=== PATIENT | female | born 1955 | race Caucasian/White ===

== ENCOUNTER 2019-09-04 20:57 | Inpatient (IN) ==
[2019-09-04] MEDS ORDERED: Sodium Chloride 0.9% 1,000 ML PRIMARY IV ONE (21:00)
[2019-09-04] MEDS ORDERED: ONDANSETRON 4 MG/2 ML VIAL IVP ONE (21:00)
[2019-09-04] MEDS ORDERED: LORazepam 2 MG/1 ML VIAL IVP ONE ×2 (21:02→23:16)
[2019-09-04 21:14] LABS: BASOPHILS # (AUTO) 0.03 10*3/UL; BASOPHILS % (AUTO) 0.3 % (0-1); EOSINOPHILS # (AUTO) 0.08 10*3/UL; EOSINOPHILS % (AUTO) 0.7 % (0-8); Hematocrit [HCT] 47.5 % (37.0-47.0); Hemoglobin [HGB] 14.9 g/dL (12.0-16.0); LYMPHOCYTES # (AUTO) 5.92 10*3/uL; MEAN CORPUSCULAR HGB CONC 31.4 g/dL (33-37); MEAN CORPUSCULAR VOLUME 93.3 FL (81-99); MEAN PLATELET VOLUME 11.5 FL (7.4-12.2); MONOCYTES # (AUTO) 0.74 10*3/UL (0.3-0.8); MONOCYTES % (AUTO) 6.5 % (5-15); NEUTROPHILS # (AUTO) 4.61 10*3/UL; NEUTROPHILS % (AUTO) 40.3 % (50-80); RED BLOOD COUNT 5.09 10^6/uL (4.20-5.40)
[2019-09-04 21:23] LABS: PLATELET MORPHOLOGY COMMENT NORMAL MORPHOLOGY (NORM); RBC MORPHOLOGY COMMENT NORMAL MORPHOLOGY (NORM); WBC MORPHOLOGY COMMENT NORMAL MORPHOLOGY (NORM)
[2019-09-04 21:26] LABS: BLOOD UREA NITROGEN 12 mg/dL (7-22); SERUM ALBUMIN 4.6 g/dL (3.5-4.8)
[2019-09-04 22:13] LABS: VENOUS PH 7.3 (7.32-7.42)
[2019-09-04 23:20] LABS: BILIRUBIN,URINE NEGATIVE (NEG); CLARITY,URINE Slightly Cloudy (CLEAR); COLOR,URINE YELLOW (Y); GLUCOSE, URINE (UA) NEGATIVE (NEG); OCCULT BLOOD,URINE MODERATE (NEG); PROTEIN,URINE TRACE mg/dl (NEG); UROBILINOGEN,URINE 0.2 EU/dL (0.2)
[2019-09-04 23:23] LABS: BACTERIA,URINE MANY; SQUAMOUS EPITHELIAL CELL,UR FEW; URINE SAMPLE TYPE CATH SPECIMEN
[2019-09-04 23:27] LABS: AMPHETAMINE SCREEN NEGATIVE (NEG); CANNABINOID SCREEN,URINE NEGATIVE (NEG); COCAINE SCREEN NEGATIVE (NEG); METHADONE URINE SCREEN NEGATIVE (NEG); METHAMPHETAMINES SCREEN,URINE NEGATIVE (NEG); OPIATE SCREEN,URINE NEGATIVE (NEG)
[2019-09-04] MEDS ORDERED: cefTRIAXone Inj 2 GM in Sodium Chloride 0.9% 100 ML IV ONE (23:33)
[2019-09-05] MEDS ORDERED: fentaNYL Inj 100 MCG/2 ML VIAL IVP ONE (00:06)
[2019-09-05] MEDS ORDERED: fentaNYL Inj 100 MCG/2 ML VIAL ONE (00:10)
[2019-09-05] MEDS ORDERED: Lactated Ringers 1,000 ML PRIMARY IV SCH (01:36)
[2019-09-05] MEDS ORDERED: ONDANSETRON 4 MG/2 ML VIAL IVP PRN (01:36)
[2019-09-05] MEDS ORDERED: ACETAMINOPHEN 325 MG TABLET PO PRN (01:36)
[2019-09-05] MEDS ORDERED: oxyCODONE IR Tab 15 MG TAB PO PRN (01:36)
[2019-09-05] MEDS ORDERED: LIDOCAINE W/ SODIUM BICARB 0.5 ML SYR SUBD PRN (01:36)
[2019-09-05] MEDS ORDERED: CALCIUM CARBONATE 500 MG (TUMS) CHEWABLE TABLET PO PRN (01:36)
[2019-09-05] MEDS ORDERED: cefTRIAXone Inj 2 GM in Sodium Chloride 0.9% 100 ML IV SCH ×3 (01:45→18:00)
[2019-09-05] MEDS ORDERED: Sodium Chloride 0.9% 1,000 ML PRIMARY IV ONE (01:59)
[2019-09-05] MEDS: GABAPENTIN 300 MG CAPSULE PO SCH ×2 (02:15→08:04)
[2019-09-05] MEDS: HEPARIN 5000 UNIT/1 ML SUBCUT SCH ×3 (02:15→18:44)
[2019-09-05] MEDS ORDERED: ASPIRIN 81 MG (BABY) CHEWABLE TABLET PO ONE (04:19)
[2019-09-05] MEDS ORDERED: PANTOPRAZOLE 40 MG TABLET PO SCH (07:00)
[2019-09-05] MEDS ORDERED: CLOPIDOGREL 75 MG TABLET PO SCH (09:00)
[2019-09-05] MEDS ORDERED: DOCUSATE 100 MG CAPSULE PO PRN (09:00)
[2019-09-05] MEDS ORDERED: CloNIDine Tab 0.1 MG TABLET PO SCH (09:00)
[2019-09-05] MEDS ORDERED: DOXEPIN HCL 25 MG PO SCH (09:00)
[2019-09-05] MEDS ORDERED: METOPROLOL SUCCINATE 50 MG SR 24H TABLET PO SCH (09:00)
[2019-09-05] MEDS ORDERED: Ropinirole Tab 0.25 MG TAB PO SCH (09:00)
[2019-09-05 10:11] LABS: BLOOD UREA NITROGEN 9 mg/dL (7-22); BUN/CREATININE RATIO 12.85 (6-20); SERUM ALBUMIN 3.3 g/dL (3.5-4.8)
[2019-09-05] MEDS: fentaNYL Inj 100 MCG/2 ML VIAL IVP PRN ×2 (14:50→14:54)
[2019-09-05 16:33] VITALS: BP 179/90; RESP 20; TEMP 98; O2SAT 97
[2019-09-05] MEDS ORDERED: traZODone Tab 50 MG TAB PO SCH (21:00)
[2019-09-05] MEDS ORDERED: Amoxicill/Clav 875/125mg Tab 1 TAB TAB PO SCH (21:00)
== END 2019-09-05 19:01 | disposition home or self-care (01) | DRG 948 ==
LOC: ER 20:57 → MED/SURG 09-05 01:23
PROVIDERS: ADMIT Internal Medicine; ATTEND Internal Medicine